=== PATIENT | female | born 1955 | race Hispanic/Latino ===

== ENCOUNTER 2020-02-21 19:19 | Emergency (ER) | payer MEDICARE ==
[2020-02-21] MEDS ORDERED: ACETAMINOPHEN-CODEINE 300/30MG TAB ONE (19:46)
[2020-02-21 20:03] LABS: ABG BASE EXCESS 0.5 mmol/L (-2.0-3.0); ABG OXYGEN SATURATION 95.2 % (95.0-99.0); ABG PCO2 40 mmHg (32-45)
[2020-02-21 20:47] LABS: BASOPHILS % (AUTO) 0.4 % (0.0-5.0); EOSINOPHILS % (AUTO) 1.3 % (0.0-8.0); HEMATOCRIT 40.5 % (36-48); LYMPHOCYTES % (AUTO) 27.9 % (21.0-51.0); MEAN CORPUSCULAR HEMOGLOBIN 25.1 pg (27.0-33.0); MEAN CORPUSCULAR HGB CONC 32.3 g/dL (32.0-36.0); MEAN CORPUSCULAR VOLUME 77.7 fL (79-99); MONOCYTES % (AUTO) 7.1 % (3.0-13.0); NEUTROPHILS % (AUTO) 62.9 % (40.0-77.0); PLATELET COUNT (AUTO) 202 K/uL (130-400); RED BLOOD CELL COUNT(AUTO) 5.21 MIL/uL (4.00-5.50); RED CELL DISTRIBUTION WIDTH 14.6 % (11.0-15.5); WHITE BLOOD COUNT (AUTO) 5.3 K/uL (4.8-10.8)
[2020-02-21 21:00] LABS: INR 1.01 (0.85-1.15); PROTHROMBIN TIME 10.8 SEC (9.6-11.6)
[2020-02-21 21:01] LABS: PARTIAL THROMBOPLASTIN TIME 32.9 SEC (26.3-35.5)
[2020-02-21 21:09] LABS: CREATININE 0.7 mg/dL (0.5-1.5); POTASSIUM 4.2 mmol/L (3.5-5.1)
[2020-02-21 21:14] LABS: ALBUMIN 3.3 g/dL (3.5-5.0); BILIRUBIN,TOTAL 0.1 mg/dL (0.2-1.0); TOTAL PROTEIN, SERUM 7.6 g/dL (6.0-8.3)
== END 2020-02-21 21:54 | disposition home or self-care (01) ==
LOC: EDH 19:19
DX: U07.1 COVID-19 (principal); E11.9 Type 2 diabetes mellitus without complications; I10 Essential (primary) hypertension; I48.91 Unspecified atrial fibrillation; Z88.9 Allergy status to unspecified drugs, medicaments and biological substances
CPT/HCPCS: 36415; 36600; 71045; 80053; 82550; 82803; 83605; 84145; 84484; 85025; 85610; 85730; 87040; 87426; 93005

== ENCOUNTER 2020-08-15 00:30 | Emergency (ER) | payer MEDICARE ==
[~2020-08-15] VITALS: Ht 154.9 cm; Wt 98.0 kg
[2020-08-15 01:03] VITALS: BP 131/65
[2020-08-15 01:08] LABS: HEMATOCRIT 36.3 % (36-48); MEAN CORPUSCULAR HEMOGLOBIN 25.4 pg (27.0-33.0); MEAN CORPUSCULAR VOLUME 79.4 fL (79-99); RED BLOOD CELL COUNT(AUTO) 4.57 MIL/uL (4.00-5.50); RED CELL DISTRIBUTION WIDTH 14.6 % (11.0-15.5); WHITE BLOOD COUNT (AUTO) 9.1 K/uL (4.8-10.8)
[2020-08-15 01:19] LABS: CREATININE 0.7 mg/dL (0.5-1.5); POTASSIUM 4.1 mmol/L (3.5-5.1)
[2020-08-15 01:23] LABS: ALBUMIN 3.2 g/dL (3.5-5.0); BILIRUBIN,TOTAL 0.1 mg/dL (0.2-1.0); TOTAL PROTEIN, SERUM 7.2 g/dL (6.0-8.3)
[2020-08-15] MEDS ORDERED: ACYCLOVIR 200 MG CAPSULE PO STA (01:38)
[2020-08-15] MEDS ORDERED: ONDANSETRON 4MG INJ IVP ONE (02:15)
[2020-08-15] MEDS ORDERED: HYDROMORPHONE 0.5 MG SYG (0.5MG/0.5ML) IVP ONE (02:15)
[2020-08-15] MEDS ORDERED: VALA100031 PO (02:17)
[2020-08-15 02:32] VITALS: BP 121/67
== END 2020-08-15 02:37 | disposition home or self-care (01) ==
LOC: EDH 00:30
DX: B02.9 Zoster without complications (principal); E11.9 Type 2 diabetes mellitus without complications; I48.91 Unspecified atrial fibrillation; Z98.890 Other specified postprocedural states; Z95.0 Presence of cardiac pacemaker; Z79.01 Long term (current) use of anticoagulants
CPT/HCPCS: 36415; 71045; 80053; 83690; 84484; 85027; 93005; 96374; 96375; 99285; J1170; J2405

== ENCOUNTER 2021-08-22 11:45 | Emergency (ER) | payer MEDICARE, OTHER ==
[~2021-08-22] VITALS: Ht 154.9 cm; Wt 99.8 kg
[~2021-08-22 11:45] MED LIST: VALA100031 PO
[2021-08-22 12:15] LABS: BASOPHILS % (AUTO) 0.5 % (0.0-5.0); EOSINOPHILS % (AUTO) 7.8 % (0.0-8.0); LYMPHOCYTES % (AUTO) 21.5 % (21.0-51.0); MEAN CORPUSCULAR HEMOGLOBIN 23.7 pg (27.0-33.0); MEAN CORPUSCULAR VOLUME 76.5 fL (79-99); MONOCYTES % (AUTO) 6.3 % (3.0-13.0); NEUTROPHILS % (AUTO) 63.6 % (40.0-77.0); PLATELET COUNT (AUTO) 243 K/uL (130-400); RED BLOOD CELL COUNT(AUTO) 5.23 MIL/uL (4.00-5.50); WHITE BLOOD COUNT (AUTO) 7.8 K/uL (4.8-10.8)
[2021-08-22 12:29] LABS: CREATININE 0.9 mg/dL (0.5-1.5); POTASSIUM 4.3 mmol/L (3.5-5.1)
[2021-08-22 12:29] LABS: APPEARANCE,URINE CLEAR (CLEAR); BILIRUBIN,URINE NEGATIVE (NEGATIVE); COLOR,URINE DARK YELLOW (YELLOW); GLUCOSE, URINE (UA) NEGATIVE (NEGATIVE); KETONES,URINE NEGATIVE (NEGATIVE); LEUKOCYTE ESTERASE ,URINE LARGE (NEGATIVE); NITRATE,URINE POSITIVE (NEGATIVE); OCCULT BLOOD,URINE NEGATIVE (NEGATIVE); PH,URINE 6.5 (5.0-8.0); PROTEIN,URINE NEGATIVE (NEGATIVE); UROBILINOGEN,URINE 0.2 mg/dL (0.2-1.0)
[2021-08-22 12:34] LABS: ALBUMIN 3.2 g/dL (3.5-5.0); BILIRUBIN,TOTAL 0.2 mg/dL (0.2-1.0); TOTAL PROTEIN, SERUM 7.5 g/dL (6.0-8.3)
[2021-08-22] MEDS ORDERED: 0.9% NACL 500ML IV.SOLN 500 ML IV ONE (13:00)
[2021-08-22 13:06] LABS: SQUAMOUS EPITHELIAL CELL,UR Few /HPF (0-2)
[2021-08-22 13:07] LABS: BACTERIA,URINE Moderate /HPF (None Seen)
[2021-08-22] MEDS ORDERED: CEFTRIAXONE 1G VIAL IVP ONE (13:30)
[2021-08-22] MEDS ORDERED: ONDANSETRON 4MG INJ IVP ONE (13:30)
[2021-08-22] MEDS ORDERED: MORPHINE 2 MG SYG IVP ONE (13:30)
[2021-08-22] MEDS ORDERED: 0.9%NACL 50ML 50 ML IV ONE (13:49)
[2021-08-22] MEDS ORDERED: PRED20TA3 PO (14:17)
[2021-08-22] MEDS ORDERED: CEPH500B PO (14:17)
[2021-08-22 14:31] VITALS: BP 121/59
== END 2021-08-22 14:46 | disposition home or self-care (01) ==
LOC: EDH 11:45
DX: N39.0 Urinary tract infection, site not specified (principal); M54.42 Lumbago with sciatica, left side; E11.9 Type 2 diabetes mellitus without complications; I48.91 Unspecified atrial fibrillation; I25.2 Old myocardial infarction; Z90.710 Acquired absence of both cervix and uterus; Z79.899 Other long term (current) drug therapy
CPT/HCPCS: 36415; 74176; 80053; 81001; 85025; 87077; 87088; 87186; 96374; 96375; 99284; J0696; J2405; J7040